=== PATIENT | male | born 1960 | race African-American/Black ===

== ENCOUNTER 2020-10-22 08:34 | Inpatient (IN) | payer MEDICARE, MEDICAID ==
[~2020-10-22] VITALS: Ht 172.7 cm; Wt 63.6 kg
[2020-10-22] VITALS (7 sets, daily range): BP systolic 130–152; BP diastolic 60–75; Ht 172.7 cm; Wt 63.6 kg
[2020-10-22] MEDS ORDERED: VITAMIN B-12100 MCG PO (08:45)
[2020-10-22] MEDS ORDERED: VITAMIN B-1250 MG PO (08:45)
[2020-10-22] MEDS ORDERED: FOLATE0.4 MG PO (08:45)
[2020-10-22] MEDS ORDERED: TOZAL SOFTGEL1 EACH PO (08:45)
--- NOTE | 2020-10-22 08:56 | NUR ---
PT GIVEN A GOWN ET ASKED TO CHANGE INTO IT IN PREPARATION FOR US. PT CHANGING AT THIS TIME.
[2020-10-22 09:25] LABS: ALBUMIN 3.2 g/dL (3.4-5.0); ALKALINE PHOSPHATASE 111 U/L (30-120); ALT (SGPT) 26 U/L (10-68); BILIRUBIN - TOTAL 0.77 mg/dL (0.2-1.3); CALCIUM 9.4 mg/dL (8.5-10.1); CARBON DIOXIDE 23.4 mmol/L (21.0-32.0); CREATININE - SERUM 0.7 mg/dL (0.6-1.3); GLUCOSE 97 mg/dL (74-106); PROTEIN - SERUM 7.3 g/dL (6.4-8.2); UREA NITROGEN 4 mg/dL (7-18); eGFR NON AFRICAN AMERICAN > 90 mL/min (90-120)
[2020-10-22 09:26] LABS: APTT 36.5 SECONDS (22.8-39.4); INR 1.4 (0.85-1.17); PROTIME 15.9 SECONDS (11.6-15.0)
[2020-10-22 09:27] LABS: D-DIMER-QUANTITATIVE 1.13 ug/mLFEU (0.20-0.54)
[2020-10-22 09:33] LABS: CALC OSMOLALITY 233 mosm/kg (275-300)
[2020-10-22 09:35] LABS: CHLORIDE - SERUM 85 mmol/L (98-107); SODIUM 117 mmol/L (136-145)
[2020-10-22 09:43] LABS: BASOPHILS 0.5 % (0-2); EOSINOPHILS 0.6 % (0-7); IMMATURE GRANULOCYTES 0.4 % (0-5); LYMPHOCYTE ABS# 0.98 10x3/uL (1.32-3.57); LYMPHOCYTES 9.9 % (15-50); MCH 18.1 pg (26.0-34.0); MCHC 26.9 g/dL (31.0-37.0); MCV 67.4 fL (80.0-100.0); MEAN PLATELET VOLUME 8.3 fL (7.4-10.4); MONOCYTES 11.1 % (2-11); NEUTROPHIL ABS# 7.71 10x3/uL (1.78-5.38); NEUTROPHILS 77.5 % (40-80); PLATELET COUNT 413 10x3/uL (130-400); RBC 2.15 10x6/uL (4.20-6.10); RDW 21.3 % (11.5-14.5); WBC 9.9 10x3/uL (4.8-10.8)
[2020-10-22 09:44] LABS: HEMATOCRIT 14.5 % (42.0-54.0); HEMOGLOBIN 3.9 g/dL (13.5-17.5)
--- NOTE | 2020-10-22 13:18 | NUR ---
ARRIVED TO UNIT WITH 1 UNIT PRBC TRANSFUSING, 2ND UNIT ORDERED. ALERT AND ORIENTED. STATES HE HAS BEEN PASSING OUT AND REALLY TIRED AT HOME. PAIN TO LEFT HIP. LEFT LOWER EXTREMITY EDEMA. LEFT HAND NS @125. RIGHT AC PRBC @ 175ML/HR. CALL LIGHT IN REACH. LUNCH TRAY ON WAY.
[2020-10-22] MEDS ORDERED: ACETAMINOPHEN325 MG PO (13:27)
[2020-10-22 19:21] LABS: HEMATOCRIT 20.5 % (42.0-54.0)
--- NOTE | 2020-10-22 19:28 | NUR ---
PAGE OUT TO DR HERNÁNDEZ, PTS HGB 6.0.
--- NOTE | 2020-10-22 19:32 | NUR ---
SPOKE WITH DR HERNÁNDEZ, INFORMED HIM OF PTS HGB OF 6.O, ORDERS GIVEN TO TRANSFUSE 2 MORE UNITS OF PRBCs. ORDER PLACED IN [facility] AND [facility]ARD IN LAB NOTIFIED.
--- NOTE | 2020-10-22 21:15 | NUR ---
PRBCs INFUSING TO LEFT HAND 20 GUAGE IV, VITALS STABLE.
--- NOTE | 2020-10-23 00:30 | NUR ---
SECOND UNIT OF PRBCS INFUSING, VITALS STABLE. NO S.S ADVERSE REACTION NOTED.
--- NOTE | 2020-10-23 03:04 | NUR ---
SECOND UNIT OF PRBCS FINISHED INFUSING, LINE FLUSING WITH NS, VITALS STABLE. NO S/S ADVERSE REACTION NOTED.
--- NOTE | 2020-10-23 03:42 | NUR ---
I have reviewed this patient and I concur with the Shift Assessment completed by the Licensed Practical Nurse today this shift.
--- NOTE | 2020-10-23 03:42 | NUR ---
I have reviewed this patient and I concur with the Shift Assessment completed by the Licensed Practical Nurse today this shift.
[2020-10-23 04:00] VITALS: BP 131/68
[2020-10-23 06:43] LABS: BASOPHILS 0.5 % (0-2); EOSINOPHILS 0.6 % (0-7); IMMATURE GRANULOCYTES 0.4 % (0-5); LYMPHOCYTE ABS# 1.23 10x3/uL (1.32-3.57); LYMPHOCYTES 11.2 % (15-50); MCH 23.9 pg (26.0-34.0); MCHC 30.9 g/dL (31.0-37.0); MEAN PLATELET VOLUME 8.8 fL (7.4-10.4); MONOCYTES 13.9 % (2-11); NEUTROPHIL ABS# 8.06 10x3/uL (1.78-5.38); NEUTROPHILS 73.4 % (40-80); PLATELET COUNT 333 10x3/uL (130-400); RDW 23.8 % (11.5-14.5); RETIC 3.57 % (0.45-2.28)
[2020-10-23 06:47] LABS: % SATURATION 39 % (15-55); IRON 153 ug/dl (35-150); TOTAL IRON BIND CAPACITY 392 ug/dl (260-445); UNSAT IRON BIND CAPACITY 239 ug/dl (150-375)
[2020-10-23 06:48] LABS: HEMATOCRIT 25.6 % (42.0-54.0); HEMOGLOBIN 7.9 g/dL (13.5-17.5); MCV 77.3 fL (80.0-100.0); RBC 3.31 10x6/uL (4.20-6.10)
[2020-10-23 07:07] LABS: ALBUMIN 2.8 g/dL (3.4-5.0); ALKALINE PHOSPHATASE 97 U/L (30-120); ALT (SGPT) 23 U/L (10-68); BILIRUBIN - TOTAL 1.89 mg/dL (0.2-1.3); CALC OSMOLALITY 249 mosm/kg (275-300); CARBON DIOXIDE 24.5 mmol/L (21.0-32.0); CHLORIDE - SERUM 92 mmol/L (98-107); CREATININE - SERUM 0.8 mg/dL (0.6-1.3); GLUCOSE 93 mg/dL (74-106); POTASSIUM - SERUM 3.9 mmol/L (3.5-5.1); PROTEIN - SERUM 6.3 g/dL (6.4-8.2); SODIUM 125 mmol/L (136-145); eGFR NON AFRICAN AMERICAN > 90 mL/min (90-120)
[2020-10-23 07:08] LABS: UREA NITROGEN 8 mg/dL (7-18)
--- NOTE | 2020-10-23 07:13 | NUR ---
RECEIVE SHIFT REPORT. RESTING IN BED WITH EYES CLOSED. NO S/S OF DISTRESS PRESENT AT THIS TIME. RECEIVED TOTAL OF 4 UNITS PRBC'S YESTERDAY. NS @ 125ML/HR. ON TELEMETRY. CALL LIGHT IN REACH. WILL CONTINUE POC AND SAFETY PRECAUTIONS.
[2020-10-23 08:00] VITALS: BP 144/66
[2020-10-23 09:25] LABS: % SATURATION 1 % (15-55); IRON 9 ug/dl (35-150); TOTAL IRON BIND CAPACITY 464 ug/dl (260-445)
[2020-10-23 09:37] LABS: UNSAT IRON BIND CAPACITY 455 ug/dl (150-375)
[2020-10-23 11:00] VITALS: BP 140/76
[2020-10-23 15:00] VITALS: BP 155/87
--- NOTE | 2020-10-23 19:00 | NUR ---
REPORT RECEIVED. PT IN [facility] ABOUT IV. IV WITH DRIED BLOOD AROUND SITE. FLUSHES BUT LEAKS. D/C WITH CATHETER TIP INTACT.
[2020-10-23 20:00] VITALS: BP 153/76
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
[2020-10-23 23:58] VITALS: BP 157/68
--- NOTE | 2020-10-24 01:59 | NUR ---
PT A&O X4 BUT FORGETFUL AT TIMES. DOES NOT REMEMBER WHEN THIS NURSE COMES BACK FOR A TASK THAT WE HAD TALKED ABOUT. NEW 20G PIV SITED TO LEFT OUTTER FA X1 ATTEMPT. PT TOLERATED WELL. LEFT FOOT REMAINS MORE EDEMATOUS THEN THE LEFT, ONLY C/O OF NEROPATHY PAIN. BM X1 COLLECTED. LEFT SECOND ORDER AND EDUCATED PT WE NEED A SECOND SMAPLE IN CASE FIRST IS NOT ENOUGH. CL IN REACH AND UTALIZED APPROPRIATLELY. WILL CTM.
--- NOTE | 2020-10-24 03:09 | NUR ---
PT WITH EPITAXIS THIS AM. STATED HE WENT TO GET UP FROM A LAYING POSTION. BLOOD STOPPED AFTER A FEW MINS. NO S/S OF DISTRESS. LINEN CHANGED. DENIES NEEDS. WILL CTM.
[2020-10-24 04:43] VITALS: BP 131/71
[2020-10-24 05:19] LABS: BASOPHILS 0.6 % (0-2); IMMATURE GRANULOCYTES 0.4 % (0-5); LYMPHOCYTE ABS# 1.28 10x3/uL (1.32-3.57); LYMPHOCYTES 12.6 % (15-50); MCH 23.7 pg (26.0-34.0); MCV 79.1 fL (80.0-100.0); MEAN PLATELET VOLUME 8.6 fL (7.4-10.4); MONOCYTES 15.6 % (2-11); NEUTROPHIL ABS# 7.06 10x3/uL (1.78-5.38); NEUTROPHILS 69.8 % (40-80); PLATELET COUNT 284 10x3/uL (130-400); RBC 3.16 10x6/uL (4.20-6.10); RDW 24.6 % (11.5-14.5); WBC 10.1 10x3/uL (4.8-10.8)
[2020-10-24 05:30] LABS: HEMOGLOBIN 7.5 g/dL (13.5-17.5)
[2020-10-24 05:45] LABS: ALBUMIN 2.6 g/dL (3.4-5.0); ALKALINE PHOSPHATASE 98 U/L (30-120); ALT (SGPT) 24 U/L (10-68); BILIRUBIN - TOTAL 0.94 mg/dL (0.2-1.3); CALC OSMOLALITY 253 mosm/kg (275-300); CALCIUM 8.9 mg/dL (8.5-10.1); CARBON DIOXIDE 26.3 mmol/L (21.0-32.0); CHLORIDE - SERUM 96 mmol/L (98-107); CREATININE - SERUM 0.7 mg/dL (0.6-1.3); GLUCOSE 94 mg/dL (74-106); SODIUM 127 mmol/L (136-145); UREA NITROGEN 9 mg/dL (7-18); eGFR NON AFRICAN AMERICAN > 90 mL/min (90-120)
--- NOTE | 2020-10-24 07:10 | NUR ---
RECEIVE SHIFT REPORT. RESTING IN BED WITH EYES CLOSED. AROUSES TO VOICE. DENIES ANY NEEDS AT THIS TIME. CONTINUE POC AND SAFETY PRECAUTIONS.
[2020-10-24 08:03] VITALS: BP 161/80
[2020-10-24 12:01] VITALS: BP 138/69
[2020-10-24 15:58] VITALS: BP 136/72
[2020-10-24 21:14] VITALS: BP 141/75
[2020-10-25 01:47] VITALS: BP 133/60
[2020-10-25 05:36] LABS: BASOPHILS 1.1 % (0-2); EOSINOPHILS 2.1 % (0-7); HEMATOCRIT 25.6 % (42.0-54.0); HEMOGLOBIN 7.7 g/dL (13.5-17.5); IMMATURE GRANULOCYTES 0.5 % (0-5); LYMPHOCYTE ABS# 1.51 10x3/uL (1.32-3.57); LYMPHOCYTES 15.1 % (15-50); MCH 23.9 pg (26.0-34.0); MCHC 30.1 g/dL (31.0-37.0); MCV 79.5 fL (80.0-100.0); MEAN PLATELET VOLUME 8.5 fL (7.4-10.4); MONOCYTES 14.7 % (2-11); NEUTROPHIL ABS# 6.65 10x3/uL (1.78-5.38); NEUTROPHILS 66.5 % (40-80); PLATELET COUNT 230 10x3/uL (130-400); RBC 3.22 10x6/uL (4.20-6.10); RDW 25.7 % (11.5-14.5)
[2020-10-25 05:50] VITALS: BP 130/71
[2020-10-25 06:08] LABS: CALC OSMOLALITY 255 mosm/kg (275-300); CALCIUM 8.8 mg/dL (8.5-10.1); CARBON DIOXIDE 22.9 mmol/L (21.0-32.0); CHLORIDE - SERUM 98 mmol/L (98-107); CREATININE - SERUM 0.7 mg/dL (0.6-1.3); GLUCOSE 107 mg/dL (74-106); POTASSIUM - SERUM 3.9 mmol/L (3.5-5.1); SODIUM 129 mmol/L (136-145); eGFR NON AFRICAN AMERICAN > 90 mL/min (90-120)
[2020-10-25 06:10] LABS: UREA NITROGEN 4 mg/dL (7-18)
[2020-10-25 07:34] VITALS: BP 164/89
--- NOTE | 2020-10-25 10:27 | NUR ---
PROVIDED PT WITH NICOTINE PATCH, APPLIED TO RT UPPER ARM. PT DENIES ANY OTHER NEEDS AT THIS TIME. CALL LIGHT IN REACH.
[2020-10-25 11:47] VITALS: BP 150/96
[2020-10-25 15:59] VITALS: BP 168/94
--- NOTE | 2020-10-25 20:00 | NUR ---
PT CONTINUES TO C/O PAIN TO LEFT LEG, INCREASED SWELLING OBSERVED.
[2020-10-25 20:30] VITALS: BP 132/68
[2020-10-26 00:30] VITALS: BP 136/62
[2020-10-26 04:30] VITALS: BP 129/58
[2020-10-26 06:22] LABS: BASOPHILS 1.2 % (0-2); EOSINOPHILS 2.1 % (0-7); HEMATOCRIT 26.4 % (42.0-54.0); HEMOGLOBIN 7.8 g/dL (13.5-17.5); IMMATURE GRANULOCYTES 0.2 % (0-5); LYMPHOCYTE ABS# 1.41 10x3/uL (1.32-3.57); LYMPHOCYTES 14.1 % (15-50); MCH 23.9 pg (26.0-34.0); MCHC 29.5 g/dL (31.0-37.0); MCV 80.7 fL (80.0-100.0); MEAN PLATELET VOLUME 8.5 fL (7.4-10.4); MONOCYTES 14.1 % (2-11); NEUTROPHIL ABS# 6.82 10x3/uL (1.78-5.38); NEUTROPHILS 68.3 % (40-80); PLATELET COUNT 212 10x3/uL (130-400); RBC 3.27 10x6/uL (4.20-6.10); RDW 27.6 % (11.5-14.5)
[2020-10-26 06:52] LABS: CALC OSMOLALITY 258 mosm/kg (275-300); CALCIUM 8.9 mg/dL (8.5-10.1); CARBON DIOXIDE 23.1 mmol/L (21.0-32.0); CHLORIDE - SERUM 99 mmol/L (98-107); CREATININE - SERUM 0.7 mg/dL (0.6-1.3); GLUCOSE 86 mg/dL (74-106); POTASSIUM - SERUM 3.9 mmol/L (3.5-5.1); SODIUM 131 mmol/L (136-145); UREA NITROGEN 5 mg/dL (7-18); eGFR NON AFRICAN AMERICAN > 90 mL/min (90-120)
[2020-10-26 08:42] VITALS: BP 153/86
--- NOTE | 2020-10-26 08:46 | NUR ---
AM MEDS GIVEN AT THIS TIME. PT A/O X3 CONFUSED TO PLACE. RESP EVEN AND NONLABORED ON RA. LT FA IV INFUSING NS AT 75CC/HR. PT DENIES ANY NEED AT THIS TIME, CALL LIGHT IN REACH, WILL CONTINUE PLAN OF CARE.
[2020-10-26 11:43] VITALS: BP 150/84
[2020-10-26] MEDS ORDERED: NIFEREX-150 CAP1 CA3 PO (15:16)
[2020-10-26] MEDS ORDERED: NICODERM CQ1 EAC2 TOPICAL (16:00)
--- NOTE | 2020-10-26 16:29 | NUR ---
PROVIDED VERBAL AND WRITTEN DISCHARGE TEACHING TO PT, WHO VERBALIZED UNDERSTANDING REGARDING TEACHING. D/C LT FA WITH CATHETER TIP INTACT. HEART MONITOR REMOVED AND TAKEN TO DOGGER. PT WAITING ON RIDE, WILL NOTIFY NURSE WHEN READY FOR WHEELCHAIR.
[2020-10-26 16:33] VITALS: BP 144/82
--- NOTE | 2020-10-26 16:44 | MORECARE ---
CASE MANAGEMENT DISCHARGE SUMMARY PATIENT: ELEONORA CASPER UNIT: [id number] ADM DATE: 10/22/20 AGE: 60 : 62 SEX: M ROOM/BED: D.2118 AUTHOR: FRANCI NASSAR PHYSICIAN: REFERRING PHYSICIAN: JUAN HERNÁNDEZ MD DATE OF SERVICE: 10/26/20 Case Management Discharge Planning Summary COMMENTS ENTERED DATE: 10/26/20 16:35 CT COMMENT TYPE: Discharge Planning REVIEWER: Sawyer Shepard HOME NO NEEDS. CM met with patient to complete DC plan and to evaluate needs. Patient lives independently with family and has strong family support. Patient stated that his home is safe and has electricity and running water. Patient stated that the home has 3 steps to enter and he is able to manage the steps without difficulty. Patient stated that he has no problems paying for medications and he fills his medications at [facility]. Patient stated his primary care physician is Dr. Elizabeth. At discharge, the patient plans to return home and feels this is a safe discharge. CM discussed availability of home health, rehab services, and medical equipment. Patient declined HHS, SNF, IPR, and DME. Patient stated that his sisters can help him. Patient stated that one sister is a care-automobile or truck rental dispatcher and the other is hospital aide. Patient stated that he has a cane and walker at home. Patient voiced no other needs at this time and is satisfied with DC plan. Transportation provider at discharge will be with his sister, Nydia Gomez, . Currently the patient is having trouble reaching his sister. DC IMM delivered, explained, signed by the patient, and placed in chart. Signed form also left with the patient. CM will continue to follow and will assist as needed with dc plans/needs. DCP REVIEW SUMMARY ANTICIPATED D/C DATE: 10/26/2020 EXPECTED LOS : 4 CASE STATUS: DCP Initiated INITIAL REVIEW: 10/22/2020 INITIAL REVIEWER: Sawyer Shepard FINAL DISCHARGE DISPOSITION: : FINAL REVIEWER: FINAL REVIEW DATE: DCP Focus Questions & Answers DCP Evaluation QUESTION: ANSWER Family / Caregiver's ability to cope with chronic illness: : a. Adequate (ability to meet patient's medical needs, ensures patient attends medical appts.) Patient gives permission to discuss discharge plans with: (name, relationship and number) : sisterNydia, Patient's ability to cope with chronic illness : d. No chronic illness Patient's current cognitive status: : *Oriented to person, place, situation, time and present Patient and/or caregiver agree upon recommended discharge plan? : Yes Physical Status: : Independent with ADL's Family / Caregiver's ability to cope with chronic illness: : a. Adequate (ability to meet patient's medical needs, ensures patient attends medical appts.) Functional screen assessment: : Basic needs can adequately be met by self Does the patient have the ability to pay for or attain post discharge needs / services? : Yes Living Arrangements: : Home with Extended Family Is there a likelihood that the patient will require additional services to return to the preadmission environment? : No Equipment needed for post hospitalization: : None Baseline cognitive status: : *Oriented to person, place, situation, time and present Patient with capacity for self-care or can be cared for in same environment as prior to hospitalization? : Yes Physical environment modification needed / anticipated for discharge: : No Medication Management: : Patient states can afford medications Medication Management: : Patient states can read and understand medication labels [facility] Does Patient have transportation to get home and to follow-up medical appointments when discharged from the hospital? : Yes Would patient like to participate in any Care Coordination programs (if applicable): : Not applicable Does the patient have electricity at home? : Yes Does the patient have running water in their house? : Yes Equipment in use: : Cane - Single Leg Equipment in use: : Walker - Standard Mental health screen: : No mental health history DCP Re-evaluation QUESTION: ANSWER Would patient like to participate in any Care Coordination programs (if applicable): : Not applicable PATIENT: ELEONORA CASPER ENCOUNTER: [id number] MEDICAL RECORD#: [id number] ADMISSION DATE: 10/22/2020 DISCHARGE DATE: ATTENDING MD: JUAN GARCIA : AGE: 60 MARITAL STATUS: S DC PLAN ID: [id number] FACILITY: [facility] PRINTED ON: 10/26/20 16:43 CT All edits/amendments must be made on the electronic document DICTATION DATE: 10/26/201642 PART MAKER: MEENU 10/26/201642 RPT#: [id number] DC DATE: STATUS: ADM IN [facility] [address] [place] [address] END OF REPORT
--- NOTE | 2020-10-26 18:12 | NUR ---
PT REFUSED TO BE WHEELED TO ER ENTRANCE, LEFT UNIT VIA ABULATORY WITH ALL BELONGINGS, NAD NOTED.
--- NOTE | 2020-10-28 09:57 | MORECARE ---
CASE MANAGEMENT DISCHARGE SUMMARY PATIENT: ELEONORA CASPER UNIT: [id number] ADM DATE: 10/22/20 AGE: 60 : 62 SEX: M ROOM/BED: D.2118 AUTHOR: FRANCI NASSAR PHYSICIAN: REFERRING PHYSICIAN: JUAN HERNÁNDEZ MD DATE OF SERVICE: 10/28/20 Case Management Discharge Planning Summary COMMENTS ENTERED DATE: 10/26/20 16:35 CT COMMENT TYPE: Discharge Planning REVIEWER: Sawyer Shepard HOME NO NEEDS. CM met with patient to complete DC plan and to evaluate needs. Patient lives independently with family and has strong family support. Patient stated that his home is safe and has electricity and running water. Patient stated that the home has 3 steps to enter and he is able to manage the steps without difficulty. Patient stated that he has no problems paying for medications and he fills his medications at [facility]. Patient stated his primary care physician is Dr. Elizabeth. At discharge, the patient plans to return home and feels this is a safe discharge. CM discussed availability of home health, rehab services, and medical equipment. Patient declined HHS, SNF, IPR, and DME. Patient stated that his sisters can help him. Patient stated that one sister is a care-special needs child caregiver and the other is hospital aide. Patient stated that he has a cane and walker at home. Patient voiced no other needs at this time and is satisfied with DC plan. Transportation provider at discharge will be with his sister, Nydia Gomez, . Currently the patient is having trouble reaching his sister. DC IMM delivered, explained, signed by the patient, and placed in chart. Signed form also left with the patient. CM will continue to follow and will assist as needed with dc plans/needs. DCP REVIEW SUMMARY ANTICIPATED D/C DATE: 10/26/2020 EXPECTED LOS : 4 CASE STATUS: DCP Initiated INITIAL REVIEW: 10/22/2020 INITIAL REVIEWER: Sawyer Shepard FINAL DISCHARGE DISPOSITION: : FINAL REVIEWER: FINAL REVIEW DATE: DCP Focus Questions & Answers DCP Evaluation QUESTION: ANSWER Patient and/or caregiver agree upon recommended discharge plan? : Yes Family / Caregiver's ability to cope with chronic illness: : a. Adequate (ability to meet patient's medical needs, ensures patient attends medical appts.) Patient's current cognitive status: : *Oriented to person, place, situation, time and present Patient's ability to cope with chronic illness : d. No chronic illness Patient gives permission to discuss discharge plans with: (name, relationship and number) : sisterNydia, Does the patient have the ability to pay for or attain post discharge needs / services? : Yes Functional screen assessment: : Basic needs can adequately be met by self Family / Caregiver's ability to cope with chronic illness: : a. Adequate (ability to meet patient's medical needs, ensures patient attends medical appts.) Physical Status: : Independent with ADL's Equipment needed for post hospitalization: : None Is there a likelihood that the patient will require additional services to return to the preadmission environment? : No Living Arrangements: : Home with Extended Family Patient with capacity for self-care or can be cared for in same environment as prior to hospitalization? : Yes Baseline cognitive status: : *Oriented to person, place, situation, time and present Physical environment modification needed / anticipated for discharge: : No Medication Management: : Patient states can read and understand medication labels Medication Management: : Patient states can afford medications [facility]): [facility] Does Patient have transportation to get home and to follow-up medical appointments when discharged from the hospital? : Yes Would patient like to participate in any Care Coordination programs (if applicable): : Not applicable Does the patient have electricity at home? : Yes Does the patient have running water in their house? : Yes Equipment in use: : Walker - Standard Equipment in use: : Cane - Single Leg Mental health screen: : No mental health history DCP Re-evaluation QUESTION: ANSWER Would patient like to participate in any Care Coordination programs (if applicable): : Not applicable PATIENT: ELEONORA CASPER ENCOUNTER: [id number] MEDICAL RECORD#: [id number] ADMISSION DATE: 10/22/2020 DISCHARGE DATE: 10/26/2020 ATTENDING MD: JUAN GARCIA : AGE: 60 MARITAL STATUS: S DC PLAN ID: [id number] FACILITY: [facility] PRINTED ON: 10/28/20 9:57 CT All edits/amendments must be made on the electronic document DICTATION DATE: 10/28/20956 CELLAR PACKER: MEENU 10/28/20956 RPT#: [id number] DC DATE:10/26/20 STATUS: DIS IN [facility] [address] [place] [address] END OF REPORT
== END 2020-10-26 18:13 | disposition home or self-care (01) | DRG 812 ==
LOC: D.ER 08:34 → D.M2 10:06
PROVIDERS: Family Medicine; ADMIT Family Medicine; ATTEND Family Medicine
DX: D50.9 Iron deficiency anemia, unspecified (principal); E87.1 Hypo-osmolality and hyponatremia; F10.21 Alcohol dependence, in remission; R41.82 Altered mental status, unspecified; Z86.718 Personal history of other venous thrombosis and embolism; Z72.0 Tobacco use